=== PATIENT | male | born 1985 ===

== ENCOUNTER 2018-04-18 06:55 | Observation (INO) | payer OTHER ==
[2018-04-18 07:06] VITALS: BMI 27.8
--- NOTE | 2018-04-18 07:22 | ED PDOC ---
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 Patient was seen at 07:10. Patient reports upon waking up this morning, he felt a sharp pain to left forearm which resolved, and felt a tingling sensation to right arm. Currently here in the ER, patient experiences weakness to left arm, pain in the left side of chest, pain in left lateral upper chest and pain in left lateral neck terminating just below the bottom of the ear, pain at the distal left 3rd fingertip. Patient also feels diminished sensation to left-side of face. Patient denies any weakness to the lower extremities. Patient reports diminished sensation to the left lower leg. Patient denies headache, no visual disturbance, no speech disturbance, no gait imbalance. No PMD Past Medical History - Provider Review Nursing Documentation Reviewed: Yes - Infectious Disease Hx of Infectious Diseases: None Family/Social History - Physician Review Nursing Documentation Reviewed: Yes Family/Social History: No Known Family HX Allergies/Home Meds Allergies/Adverse Reactions: Allergies shrimp Allergy (Verified 04/18/18 07:20) ANGIOEDEMA Home Medications: Home Meds Medication Instructions Recorded Confirmed RX: No Known Home Med 04/18/18 04/18/18 Review of Systems - Physician Review All systems were reviewed & negative as marked: Yes - Review of Systems Musculoskeletal: Other (right arm tingling; left arm no strength; pain under left arm near armpit region) Neurological: Other (diminished sensation to left-side of face) Physical Exam - Physical Exam Narrative Physical Exam (Text): Gen: VS reviewed, alert, well developed, well nourished, nontoxic, mild distress Eye: EOMI, PERRL Neck: no JVD, supple, no adenopathy CV: regular rate, regular rhythm, no rubs,no murmur, S1, S2 Pulm: no distress, clear to auscultation, no wheeze, no rhonchi, breath sounds equal, no rales Ext: no edema Skin: good color, no rash, no cyanosis Psych: responds appropriately to questions, normal affect Neurologic: oriented x3, CN2-12 intact grossly, motor intact, sensation intact Diminished sensation in left cheek, left chin, left entire arm with 4/5 strength, slight dysmetria in left arm, motor sensation intact in other extremities,diminished sensation in the left lower leg. No arm or leg drift bilaterally. Vital Signs Reviewed: Yes Vital Signs Temp Pulse Resp BP Pulse Ox 04/18/18 07:12 98.5 F 78 18 153/91 H 99 04/18/18 07:06 98.5 F 78 99 H 153/91 H Temperature: Afebrile Blood Pressure: Normal Pulse: Regular Respiratory Rate: Normal Appearance: Positive for: Well-Appearing, Non-Toxic, Comfortable Pain Distress: None Mental Status: Positive for: Alert and Oriented X 3 Medical Decision Making ED Course and Treatment: 04/18/18 07:25 Impression: 32 year old male with left arm weakness and diminished sensation to left-side of face. Plan: -- EKG -- Head CT -- Head/Neck CTA -- Chest X-ray -- Labs -- Reassess and disposition Progress Notes: 04/18/18 07:[address] gleason, neurology, including cell phone.dr. grace called as well. 04/18/18 07:32 no call back from neurology, with this ambiguous case i decided to call a code stroke to expedite patient workup. ddx including but not limited to neuropathy, radiculopathy, cervical artery dissection, multiple sclerosis, cva 04/18/18 07:33 Code Stroke called at this time. 04/18/18 07:44 still awaiting call back from neurology. multiple phone calls have been placed. 07:[address] Tucker who recommends to order Brain MRI with contrast, and states patient is not a tPA candidate. 04/18/18 08:18 Received call from [facility], stating CT of Head is "negative." 04/18/18 09:[address] Calhoun, who accepts patient for admission under telemetry, and requests for neurology consult with Dr. Dial. Also requests for echo and diet order. - Lab Interpretations I have reviewed the lab results: Yes - RAD Interpretation Narrative RAD Interpretations (Text): 04/18/2018 09:[address] FINDINGS: HEMORRHAGE: No intracranial hemorrhage. BRAIN: No mass effect or edema. No atrophy or chronic microvascular ischemic changes. VENTRICLES: Unremarkable. No hydrocephalus. CALVARIUM: Unremarkable. PARANASAL SINUSES: Unremarkable as visualized. No significant inflammatory changes. MASTOID AIR CELLS: Unremarkable as visualized. No inflammatory changes. OTHER FINDINGS: The report concurs with the preliminary [facility] report IMPRESSION: No acute intracranial findings Dictator: Carlos Templeton MD 04/18/2018 09:12 Head/Neck CTA PROCEDURE: CT Angiography of the Neck. FINDINGS: RIGHT CAROTID ARTERIES: Common Carotid Artery: Normal. Carotid Bifurcation: Normal. Internal Carotid Artery: Normal. External Carotid Artery (proximal branches): Normal. LEFT CAROTID ARTERIES: Common Carotid Artery: Normal. Carotid Bifurcation: Normal. Internal Carotid Artery: Normal. External Carotid Artery (proximal branches): Normal. VERTEBRAL ARTERIES: Right Vertebral Artery: Normal. Left Vertebral Artery: Normal. OTHER FINDINGS: No aortic atherosclerotic calcification or mural plaque present. IMPRESSION: Normal CT Angiography of the neck. No evidence of dissection PROCEDURE: CT Angiography of the Brain. FINDINGS: INTERNAL CEREBRAL ARTERIES: Unremarkable. The skull base, petrous, cavernous and supraclinoid segments are bilaterally widely patent. ANTERIOR CEREBRAL ARTERIES: Unremarkable. A1 and A2 segments are widely patent. Smaller distal branches unremarkable, as visualized. MIDDLE CEREBRAL ARTERIES: Unremarkable. M1 and M2 segments are widely patent. Perisylvian branches grossly symmetric. POSTERIOR CIRCULATION: Basilar Artery: Unremarkable. Distal Vertebral Arteries: Unremarkable. Posterior Cerebral Arteries: Unremarkable. Posterior Inferior Cerebellar Arteries: Unremarkable. ANEURYSM/ VASCULAR MALFORMATIONS: None. OTHER FINDINGS: None. IMPRESSION: Unremarkable CT Angiography of the Brain. Dictator: Carlos Templeton MD 04/18/18 09:24 Chest X-ray IMPRESSION: No active disease. Dictator: Carlos Templeton MD - EKG Interpretation EKG Interpretation (Text): 04/18/18 10:18 0928: nser at 68 bpm, nml qrs, no ectopy, early repol Interpreted by ED Physician: Yes NIHSS Scale ([place]) Time Performed: 07:20 - How Severe is the Stoke Baseline Level of Consciousness: 0=Alert LOC to Questions: 0=Both comments correct LOC to commands: 0=Obeys both correctly Best Gaze: 0=Normal Visual: 0=No visual loss Facial: 0=Normal Motor Arm - Left: 0=No drift Motor Arm - Right: 0=No drift Motor Leg - Left: 0=No drift Motor Leg - Right: 0=No drift Limb Ataxia: 1=Present Upper or Lower Sensory: 1=Mild to moderate loss Best Language: 0=No aphasia Dysarthia: 0=Normal articulation Extinction & Inattention (Neglect): 0=Normal, no object Score: 2 Risk Level: Minor Stroke Risk rTPA Inclusion/Exclusion - Refusal of Treatment Patient Refused Treatment: No - Inclusion Criteria for Altepase Patient is 18 years or Older: Yes The Clinical Diagnosis of Ischemic Stroke That is Causing a Potentially Disabling Neurological Deficit: No Time of Onset is Well Established to be Less Than 270 Minute Before Treatment Would Begin: Yes Risk/Benefit Discussed With Patient/Family Member Present: No - Scribe Statement The provider has reviewed the documentation as recorded by the Sarah Lafleur Provider Scribe Attestation: All medical record entries made by the Scribe were at my direction and personally dictated by me. I have reviewed the chart and agree that the record accurately reflects my personal performance of the history, physical exam, medical decision making, and the department course for this patient. I have also personally directed, reviewed, and agree with the discharge instructions and disposition. Disposition/Present on Arrival - Present on Arrival Any Indicators Present on Arrival: No History of DVT/PE: No History of Uncontrolled Diabetes: No Urinary Catheter: No History of Decub. Ulcer: No History Surgical Site Infection Following: None - Disposition Have Diagnosis and Disposition been Completed?: Yes Diagnosis: Paresthesia Disposition: HOSPITALIZED Disposition Time: 09:38 Patient Plan: Admission Condition: GOOD
[2018-04-18 07:41] LABS: BASO # 0.03 K/mm3 (0.0-2.0); BASO % 0.3 % (0.0-3.0); EOS # 0.3 (0.0-0.7); EOS % 3.4 % (1.5-5.0); GRAN # 4.31 (1.4-6.5); GRAN % 46.5 % (50.0-68.0); LYMPH % 43.1 % (22.0-35.0); MEAN CELL VOLUME 86.1 fl (80.0-105.0); MEAN CORPUSCULAR HEMOGLOBIN 29.3 pg (25.0-35.0); MEAN PLATELET VOLUME 9.7 fl (7.0-11.0); MONO # 0.6 (0.1-0.6); MONO % 6.7 % (1.0-6.0); RBC 5.47 10^6/uL (3.5-6.1); RED CELL DISTRIBUTION WIDTH 12.9 % (11.5-14.5); WHITE BLOOD COUNT 9.3 10^3/uL (4.5-11.0)
[2018-04-18] MEDS ORDERED: Iohexol 350 MG/100 ML VIAL ONE (07:41)
[2018-04-18 07:49] LABS: INR 0.98; PARTIAL THROMBOPLASTIN TIME 33.2 Seconds (25.1-36.5); PROTHROMBIN TIME 11.3 SECONDS (9.4-12.5)
[2018-04-18 07:50] LABS: ALB/GLOB RATIO 1.4 (1.1-1.8); ALBUMIN 4.6 g/dL (3.0-4.8); ALT/SGPT 79 U/L (7-56); AST/SGOT 40 U/L (17-59); BLOOD UREA NITROGEN 14 mg/dL (7-21); CALCIUM 9.2 mg/dL (8.4-10.5); GFR NON-AFRICAN AMERICAN > 60
[2018-04-18 08:02] LABS: TROPONIN I < 0.01 ng/mL
--- NOTE | 2018-04-18 09:10 | CT ---
Date of service: 04/18/2018 PROCEDURE: CT HEAD WITHOUT CONTRAST. HISTORY: weakness COMPARISON: None available. TECHNIQUE: Axial computed tomography images were obtained through the head/brain without intravenous contrast. Radiation dose: Total exam DLP = 797.46 mGy-cm. This CT exam was performed using one or more of the following dose reduction techniques: Automated exposure control, adjustment of the mA and/or kV according to patient size, and/or use of iterative reconstruction technique. FINDINGS: HEMORRHAGE: No intracranial hemorrhage. BRAIN: No mass effect or edema. No atrophy or chronic microvascular ischemic changes. VENTRICLES: Unremarkable. No hydrocephalus. CALVARIUM: Unremarkable. PARANASAL SINUSES: Unremarkable as visualized. No significant inflammatory changes. MASTOID AIR CELLS: Unremarkable as visualized. No inflammatory changes. OTHER FINDINGS: The report concurs with the preliminary [facility] report IMPRESSION: No acute intracranial findings
--- NOTE | 2018-04-18 09:15 | CT ---
Date of service: 04/18/2018 PROCEDURE: CT Angiography of the neck with contrast HISTORY: weakness, cervical artery dissection COMPARISON: None. TECHNIQUE: Contiguous axial images of the neck were obtained from the level of the skull-base to the superior mediastinum in the arteriographic phase of enhancement. Coronal and sagittal reformats or also generated. IV contrast dose: 100 cc of Omni 350 Radiation dose: Total exam DLP = 519.4 mGy-cm. This CT exam was performed using one or more of the following dose reduction techniques: Automated exposure control, adjustment of the mA and/or kV according to patient size, and/or use of iterative reconstruction technique. FINDINGS: RIGHT CAROTID ARTERIES: Common Carotid Artery: Normal. Carotid Bifurcation: Normal. Internal Carotid Artery:Normal. External Carotid Artery (proximal branches): Normal. LEFT CAROTID ARTERIES: Common Carotid Artery: Normal. Carotid Bifurcation: Normal. Internal Carotid Artery:Normal. External Carotid Artery (proximal branches): Normal. VERTEBRAL ARTERIES: Right Vertebral Artery: Normal. Left Vertebral Artery: Normal. OTHER FINDINGS: no aortic atherosclerotic calcification or mural plaque present. IMPRESSION: Normal CT Angiography of the neck. No evidence of dissection PROCEDURE: CT Angiography of the Brain. HISTORY: weakness, cervical artery dissection COMPARISON: None available. TECHNIQUE: CT angiography of the intracranial arteries was performed. Coronal and sagittal maximum intensity projection reformated images were generated. Radiation dose: Total exam DLP = 519.4 mGy-cm. This CT exam was performed using one or more of the following dose reduction techniques: Automated exposure control, adjustment of the mA and/or kV according to patient size, and/or use of iterative reconstruction technique. FINDINGS: INTERNAL CEREBRAL ARTERIES: Unremarkable. The skull base, petrous, cavernous and supraclinoid segments are bilaterally widely patent. ANTERIOR CEREBRAL ARTERIES: Unremarkable. A1 and A2 segments are widely patent. Smaller distal branches unremarkable, as visualized. MIDDLE CEREBRAL ARTERIES: Unremarkable. M1 and M2 segments are widely patent. Perisylvian branches grossly symmetric. POSTERIOR CIRCULATION: Basilar Artery: Unremarkable. Distal Vertebral Arteries: Unremarkable. Posterior Cerebral Arteries: Unremarkable. Posterior Inferior Cerebellar Arteries: Unremarkable. ANEURYSM/ VASCULAR MALFORMATIONS: None. OTHER FINDINGS: None. IMPRESSION: Unremarkable CT Angiography of the Brain.
--- NOTE | 2018-04-18 09:28 | RAD ---
Date of service: 04/18/2018 HISTORY: chest pain COMPARISON: No prior. FINDINGS: LUNGS: No active pulmonary disease. PLEURA: No significant pleural effusion identified, no pneumothorax apparent. CARDIOVASCULAR: No aortic atherosclerotic calcification present. Normal cardiac size. No pulmonary vascular congestion. OSSEOUS STRUCTURES: No significant abnormalities. VISUALIZED UPPER ABDOMEN: Normal. OTHER FINDINGS: None. IMPRESSION: No active disease.
[2018-04-18 12:20] LABS: TROPONIN I < 0.01 ng/mL
--- NOTE | 2018-04-18 13:31 | CARD ---
APPROVED REPORT Date of service: 04/18/2018 EKG Measurement Heart [id number] <Conclusion> Normal sinus rhythm ST elevation, consider early repolarization, pericarditis, or injury Abnormal ECG
--- NOTE | 2018-04-18 15:18 | HP ---
DATE OF EXAM: 04/18/2018 HISTORY OF PRESENT ILLNESS: This 32-year-old male was examined at his bedside on the cardiac unit at the [facility]. Earlier this morning, he presented to [facility] ER complaining of left arm weakness 30 minutes prior to admission. He stated he woke up earlier this morning felt a sharp pain in his left forearm, it resolved, but than he felt a tingling sensation in his right arm. In the emergency room, he was complaining of left chest discomfort, left arm weakness, left upper chest wall discomfort, neck discomfort, and pain in the distal left third fingertip. He also complained of diminished sensation in the left side of his face, but denied any weakness to either lower extremity. He also was complaining of numbness in his left lower leg. In the emergency room, he was evaluated by Dr. Carlos Eduardo Wilkins, underwent a CT angiogram of head and neck which was unremarkable for stroke and head CT that showed no acute intracranial findings. The patient is being admitted to the cardiac unit for evaluation of probable TIA and also to rule out myocardial infarction with cardiac isoenzymes and to have a 2-D echocardiogram. On further questioning of this patient, HE HAS ALLERGIES TO SHRIMP. MEDICATIONS: He is on no home medication. REVIEW OF SYSTEMS: CONSTITUTIONAL: No fever, no chills. HEAD: No headache or seizure. EYES: No change in visual acuity. EARS: No hearing loss. THROAT: No swallowing difficulty. NECK: No stiffness. CARDIAC: No knowledge of hypertension, palpitation, cardiac arrhythmia, or myocardial infarction in his past. PULMONARY: No cough. No hemoptysis. GASTROINTESTINAL: No hematemesis. No melena. GENITOURINARY: No dysuria. SKIN: No rash. VASCULAR: No claudication. PSYCHOLOGICAL: No knowledge of depression. NEUROLOGICAL: No knowledge of stroke, seizure, or multiple sclerosis. SOCIAL HISTORY: He is a nondrinker, nonsmoker, non IV drug misuser. ALLERGIES: TO SHRIMP. PHYSICAL EXAMINATION: VITAL SIGNS: Temperature 98, respirations 16, pulse 65 and blood pressure 126/79 with a pulse ox of 98% room air. HEENT: Head normocephalic, atraumatic. Eyes; no icterus. Ears; clear. Throat; noninjected. NECK: Supple. HEART: Regular S1, S2. LUNGS: Clear. ABDOMEN: Soft. EXTREMITIES: No edema. SKIN: Without rash. NEUROLOGIC: Intact. PSYCHOLOGIC: Alert. VASCULAR: Legs warm to touch. Chest x-ray was reviewed. It shows no active pulmonary disease. No significant pleural effusion. Cardiac size was normal. There was no pleural effusion, no pulmonary congestion. No consolidation noted. Head CT was reviewed. It showed no intracranial hemorrhage. Head and neck CTA was reviewed. It was unremarkable CT angiogram of the brain. IMPRESSION: A 32-year-old male with multiple neurological complaints rule out multiple sclerosis and rule out anxiety neurosis, rule out unstable angina, elevated liver function testing noted. PLAN: To admit this patient to the cardiac unit. I have ordered an acute hepatitis A, B, C panel and a fasting lipid level for the a.m. He is scheduled for cardiac isoenzymes every 8 hours x2 and a consultation with Dr. Jarrod Dial has been ordered regarding his paresthesias. He was given aspirin 162 mg p.o. stat in the emergency room. A hepatic ultrasound to rule out fatty liver has been requested. A 2-D echocardiogram has been ordered for his chest discomfort and he has been placed on a heart-healthy diet. Based on his results and clinical progress, additional diagnostic workup and testing will be entertained. Greater than 75 minutes was spent in the care management, review of labs, orders and x-rays and outlining of treatment for this patient today. All questions were answered. Claudia Calhoun MD [facility]
--- NOTE | 2018-04-18 16:18 | CON ---
DATE: 04/18/2018 NEUROLOGY CONSULTATION CHIEF COMPLAINT: Paresthesia. HISTORY OF PRESENT ILLNESS: This is a 32-year-old man with past medical history of right arm surgery and transplant of the right eye, presenting to the ER complaining of left arm tingling and numbness especially the forearm and sharp pain in the left forearm, which has currently resolved. He also has some questionable diminished sensation to the left side of the face as well as the fingertips. No focal neurological deficits are seen on neuro exam. CT head and CT angiogram of the head and neck are unremarkable. The patient is doing so much better, no longer having any chest pain. Troponins are negative. Labs were within normal limits except for mild elevated ALT. PAST MEDICAL HISTORY: As above. ALLERGIES: SHRIMP. SOCIAL HISTORY: No illicit drug use, smoking, or EtOH abuse. REVIEW OF SYSTEMS: Fourteen-point review of systems is as per the HPI. FAMILY HISTORY: Noncontributory. MEDICATIONS: Reviewed by nurses' reconciliation sheet. LABORATORY DATA: Current labs; sodium is 142, potassium 4.4, chloride 102, carbon dioxide 29, BUN of 14, creatinine of 1.1, and random glucose of 100. PHYSICAL EXAMINATION: VITAL SIGNS: Temperature of 98, pulse rate of 63, blood pressure 122/78, respiratory rate 18, and oxygen saturation 98% on room air. GENERAL: The patient is sitting up in the bed, in no acute distress. HEENT: Head is atraumatic, normocephalic. PERRLA. Extraocular muscles are intact. NECK: Supple. No JVD. No adenopathy noted. LUNGS: Clear to auscultation. No adventitious sounds. HEART: S1 and S2, normal rate and rhythm. No murmurs, rubs, or gallops. ABDOMEN: Soft, nontender, nondistended. Bowel sounds are present. EXTREMITIES: No clubbing. No cyanosis. Peripheral pulses 2+ felt bilaterally. NEUROLOGIC: The patient is alert and oriented to person, place, month, and year. Speech is fluent without any errors. Cranial nerves II through XII are intact. Motor: Normal bulk of muscle. Normal tone. Normal strength in all four extremities. Toes are downgoing bilaterally. Sensory: Light touch, pinprick, proprioception, and vibration are intact. DTRs are 2+ throughout. Coordination: Jeqafp-jh-egaj intact and gait is normal. IMPRESSION: Intermittent paresthesias are idiopathic, it could be likely secondary to possibly any underlying anxiety, unlikely any central process since the CT angiogram of the head as well as the CAT scan of the head were unremarkable. At this time, the patient is clinically stable to be discharged home and advised adequate sleep hygiene, proper routine, and exercises throughout the day. He will follow up with me as an outpatient with an outpatient EMG. Thank you for this consult. Jarrod Dial MD
[2018-04-18 17:23] LABS: HEPATITIS B SURFACE AG Negative (NEGATIVE)
[2018-04-18 17:29] LABS: HEPATITIS A IGM NEGATIVE (NEGATIVE); HEPATITIS B CORE AB NEGATIVE (NEGATIVE)
[2018-04-18 17:41] LABS: HEPATITIS C ANTIBODY NEGATIVE (NEGATIVE)
--- NOTE | 2018-04-18 19:09 | CARD ---
APPROVED REPORT Date of service: 04/18/2018 EXAM: Two-dimensional and M-mode echocardiogram with Doppler and color Doppler. INDICATION Chest Pain 2D DIMENSIONS Left Atrium (2D)3.2 (1.6-4.0cm)IVSd1.0 (0.7-1.1cm) LVDd5.0 (3.9-5.9cm)PWd0.8 (0.7-1.1cm) LVDs3.2 (2.5-4.0cm)FS (%) 35.9 % LVEF (%)65.3 (>50%) M-Mode DIMENSIONS Aortic Root2.90 (2.2-3.7cm)Aortic Cusp Exc.1.80 (1.5-2.0cm) Aortic Valve AoV Peak Punkuduv050.0cm/Hasmukh Peak GR.6mmHg Mitral Valve MV E Xmaaextl97.4cm/sMV A Hafhksid69.4cm/sE/A ratio1.4 TDI E/Lateral E'0.0E/Medial E'0.0 Tricuspid Valve TR Peak [id number]/sRAP [id number] Peak Gr.4mmHg [id number] LEFT VENTRICLE The left ventricle is normal size. There is normal left ventricular wall thickness. The left ventricular function is normal. The left ventricular ejection fraction is within the normal range. There is normal LV segmental wall motion. The left ventricular diastolic function is normal. RIGHT VENTRICLE The right ventricle is normal size. There is normal right ventricular wall thickness. The right ventricular systolic function is normal. ATRIA The left atrium size is normal. The right atrium size is normal. AORTIC VALVE The aortic valve is normal in structure. No aortic regurgitation is present. There is no aortic valvular stenosis. MITRAL VALVE The mitral valve is normal in structure. There is no mitral valve regurgitation noted. There is no mitral valve stenosis. TRICUSPID VALVE The tricuspid valve is normal in structure. There is trace tricuspid regurgitation. PULMONIC VALVE The pulmonary valve is normal in structure. There is no pulmonic valvular regurgitation. GREAT VESSELS The aortic root is normal in size. The IVC is normal in size and collapses >50% with inspiration. <Conclusion> The left ventricle is normal size. There is normal left ventricular wall thickness. The left ventricular function is normal. The left ventricular ejection fraction is within the normal range. There is normal LV segmental wall motion. The left ventricular diastolic function is normal.
[2018-04-18 19:42] LABS: TROPONIN I < 0.01 ng/mL
[2018-04-19 06:10] LABS: HDL CHOLESTEROL 51 mg/dL (29-60)
[2018-04-19 06:15] VITALS: TEMP 97.9; O2SAT 97
[2018-04-19 06:20] LABS: LDL CHOLESTEROL 95 mg/dL (0-129)
--- NOTE | 2018-04-19 09:26 | US ---
Date of service: 04/18/2018 HISTORY: r/o fatty liver COMPARISON: None. TECHNIQUE: Sonographic evaluation of the right upper quadrant of the abdomen. FINDINGS: LIVER: Measures 15.2 cm in length. Diffusely increased echogenicity of the liver parenchyma. No mass. No intrahepatic bile duct dilatation. GALLBLADDER: Unremarkable. No gallstones. COMMON BILE DUCT: Measures 4.2 mm. No stones. No dilatation. PANCREAS: Unremarkable as visualized. No mass. No ductal dilatation. RIGHT KIDNEY: Measures 11.7 cm in length. Normal echogenicity. No calculus, mass, or hydronephrosis. AORTA: No aneurysmal dilatation. IVC: Unremarkable. OTHER FINDINGS: None . IMPRESSION: Diffusely echogenic liver suggests steatosis diffusely though other infiltrative processes possible. No discrete mass or intrahepatic biliary dilatation. Common bile duct appears normal caliber. Unremarkable gallbladder. [facility].
[2018-04-19 12:48] VITALS: BP 118/65; PULSE 55; RESP 18
--- NOTE | 2018-04-19 14:36 | DS ---
This 32-year-old male is being discharged from the [facility] on the afternoon of 04/19/2018. FINAL DIAGNOSIS: Probable anxiety attack. DISPOSITION: Home. Follow up with Dr. Jarrod Dial from Neurology. SUMMARY: This 32-year-old male presented to the [facility] with reports of paresthesias involving right and left forearm, left side of the face, fingertips and legs. There were no focal neurological deficits noted on neuro exam and CT of head and CT angiogram of head and neck were unremarkable. The patient had unremarkable troponin levels. LABORATORY DATA: He had a mildly elevated ALT which on abdominal ultrasound confirmed fatty liver and hepatitis ABC panel which were negative. EKG was unremarkable as well as a 2D echocardiogram and cholesterol panel was within normal limits including a cholesterol of 151, triglyceride 156, LDL 95, and HDL 51. Sodium 142, K 4.4, chloride 103, bicarb 29, BUN 14, creatinine 1.1, random blood sugar 92. White count 9300, hemoglobin 16, hematocrit 47.1 and platelets 276,000. The patient is cleared for discharge to home by neurologist, Dr. Jarrod Dial. I have recommended that the patient follow up with Dr. Dial regarding possible EMG studies in his office. All of the above was discussed with the patient in detail in the presence of his nurse, Suyapa Mason, registered nurse. All questions were answered. Claudia Calhoun MD
== END 2018-04-19 15:13 | disposition home or self-care (01) ==
LOC: ED 06:55 → ERH 09:43 → INTOOBSV 09:43 → 2RNO 10:44
PROVIDERS: ADMIT Internal Medicine; ATTEND Internal Medicine
DX: R20.2 Paresthesia of skin (principal); R53.1 Weakness; R07.89 Other chest pain
CPT/HCPCS: 36415; 70450; 70496; 70498; 71045; 76705; 80053; 80061; 80074; 82550; 82948; 83615; 83735; 84484; 85025; 85610; 85730; 93005; 93306; 99285; G0378; J1885; Q9967